=== PATIENT | female | born 2000 | race Two or more races ===

== ENCOUNTER 2023-02-26 16:36 | Emergency (ER) | payer OTHER, SELFPAY ==
[2023-02-26 16:37] VITALS: BP 109/86; PULSE 104; RESP 20; TEMP 36.2; O2SAT 100; BMI 21.4
--- NOTE | 2023-02-26 16:54 | EDS_ITS ---
HPI History of Present Illness Chief Complaint: Allergic Reaction Narrative Narrative: 22-year-old female past medical history of allergies presents with inflammation and swelling of her face that began yesterday. She admits to using a new chemical peel last week. She did not have any swelling or inflammation at that time, but yesterday noticed that she began having burning of her face and some mild swelling. She took Benadryl and went to sleep. She states she also applied Vaseline to her face which she has used in the past. Today, she woke up with increased swelling and swelling around her right eye. She felt like her throat was tightening and that she was short of breath this morning as well. PFSH PFS Medical History no medical history Home Medications prednisone 20 mg tablet 40 mg (2 x 20 mg) PO DAILY #20 tabs 02/26/23 [Rx Last Taken Unknown] Allergy/AdvReac Type Severity Reaction Status Date / Time Milk Containing Products Allergy Hives Verified 02/26/23 17:07 (Dairy) Surgical History no surgical history Social History Smoking Status: Never smoker ROS ROS ED ROS Narrative Constitutional: No fever, no chills. HEENT: No sore throat. No neck pain. No loss of vision. No rhinorrhea. Reported throat tightening today. Positive facial swelling, rash to face and redness. States face feels tight, especially cheeks when she tries to open her mouth. Cardiovascular: No chest pain. No palpitations. No pedal edema. Respiratory: No cough, positive shortness of breath. Abdominal: No abdominal pain. No nausea. No vomiting. Genitourinary: No dysuria. No hematuria. Musculoskeletal: No myalgias. No arthralgias. Neurologic: No headaches. No dizziness. No lightheadedness. Skin: No rash. No change in color. Psychiatric: No depression. No anxiety. EXAM Physical Exam Narrative Exam Narrative: Afebrile. Vital signs noted. Nontoxic-appearing. HEENT: Normocephalic. Atraumatic. PERRL, EOMI. Neck soft and supple. No point tenderness or step off. Positive eczematous rash to face. No drooling or trismus. Airway patent. No stridor. No angioedema of tongue. No Eriberto angina. Cardiovascular: Regular rate and rhythm with intermittent tachycardia. No murmurs, rubs, or gallops appreciated. Respiratory: No tachypnea. Lungs clear to auscultation bilaterally. Gastrointestinal: Abdomen soft, nontender, with normoactive bowel sounds. No rebound or guarding. Neurological: Awake. Alert. Nonfocal, nonlateralizing. Skin: Positive facial rash. Normal color. No pallor. Musculoskeletal: No pedal edema. Full range of motion extremities. Const Vital Signs: 02/26/23 16:37 02/26/23 17:08 Temperature 97.2 F L Temperature Source Temporal Pulse Rate 104 H 91 Respiratory Rate 20 H 14 Blood Pressure 109/86 H Blood Pressure Mean 93 Pulse Ox 100 100 Oxygen Delivery Method Room Air Room Air MDM MDM MDM Narrative Medical decision making narrative: In the differential diagnosis is allergic reaction versus contact dermatitis versus eczema versus facial cellulitis and inflammation. Patient's pulse ox is 100% on room air. I do not feel epinephrine is indicated. IV was started. She had already taken Benadryl yesterday. I do feel that she may have denuded the skin from her chemical peel and is having inflammation. She will be loaded with steroid methylprednisolone and also given Pepcid to help block the histamine release of the irritation. Upon repeat examination, she is resting comfortably. I do not feel this is an anaphylaxis and I do not feel she needs epinephrine or laboratory testing. She was given a prescription for steroid burst for the next week of 40 mg. She was referred to dermatology. She was told not to use the chemical peel any longer. I feel she be discharged to follow-up with a primary care provider and/or dermatology. Return instructions reviewed. Disposition is discharged home in stable condition. Discharge Plan Triage Chief Complaint: Allergic Reaction ED Provider: Ernst Clement Dx/Rx/DC Orders Clinical Impression: Irritant contact dermatitis of face Instructions: ED Contact Dermatitis Prescriptions: New prednisone 20 mg tablet 40 mg PO DAILY Qty: 20 0RF Primary Care Provider: Care Physician,No Primary Referrals: Shawnee Cage MD [Non-Staff] - 3-5 Days NOT,DEFINED [Non-Staff] - Activity Restrictions/Additional Instructions: Do not use the chemical peel for your face any longer. You have more of an irritant dermatitis. Take the steroids as directed for the next week. Follow- up with dermatology as soon as possible. Disposition Disposition: Home, Self Care
[2023-02-26] MEDS: MethylPREDNISolone 125 MG/2 ML Vial IV (16:57)
[2023-02-26] MEDS: Famotidine 200 MG/20 ML MDV 20 MG in 0.9% Normal Saline (Pres. free 8 ML 300 MG IV (17:06)
[2023-02-26 17:08] VITALS: PULSE 91; RESP 14; O2SAT 100
== END 2023-02-26 18:34 | disposition home or self-care (01) ==
PROVIDERS: Emergency Provider Emergency Medicine; Visit Provider Emergency Medicine
DX: L24.5 Irritant contact dermatitis due to other chemical products (principal)
CPT/HCPCS: 96374; 99282; A4216; J3490